=== PATIENT | male | born 1985 | race Two or more races ===

== ENCOUNTER 2025-02-17 06:15 | Day surgery (SDC) | payer MEDICAID, SELFPAY ==
[2025-02-16 08:50] VITALS: BMI 37.3
[2025-02-16 10:32] LABS: Basophils # (Auto) 0.0 Thou/mm3 (0.0-0.2); Basophils % (Auto) 1 % (0-2.5); Eosinophils # (Auto) 0.1 Thou/mm3 (0.0-0.5); Eosinophils % (Auto) 1 % (0-10); Hematocrit 46.5 % (41.0-53.0); Hemoglobin 16.0 g/dL (13.5-16.0); Immature Granulocytes Auto 0.01 Thou/mm3 (0.00-0.00); Lymphocytes # (Auto) 1.5 Thou/mm3 (1.0-4.8); Lymphocytes % (Auto) 30 % (10-50); Mean Corpuscular HGB Conc 34.4 g/dl (31.0-37.0); Mean Corpuscular Hemoglobin 32.1 pg (25.0-35.0); Mean Corpuscular Volume 93 fL (80-100); Monocytes # (Auto) 0.6 Thou/mm3 (0.0-0.8); Monocytes % (Auto) 12 % (0-12); Neutrophils # (Auto) 2.7 Thou/mm3 (1.8-7.7); Neutrophils % (Auto) 56 % (37-80); Nucleated Red Blood Cell # 0.00 Thou/mm3 (0.00-0.00); Nucleated Red Blood Cell % 0 /100 WBC (0); Platelet Count 202 Thou/mm3 (140-440); RDW Standard Deviation 42.5 fL (35.1-43.9); Red Blood Count 4.99 Miln/mm3 (4.50-5.90); White Blood Count 4.9 Thou/mm3 (3.8-10.6)
[2025-02-16 10:39] LABS: INR 1.0 (0.9-1.3); Partial Thromboplastin Time 27.1 Seconds (22.0-36.0); Prothrombin Time 11.2 Seconds (9.0-12.2)
[2025-02-16 10:44] LABS: Alanine Aminotransferase 70 U/L (10-49); Albumin, Serum 4.6 gm/dL (3.5-5.0); Albumin/Globulin Ratio 1.5 (1.2-2.2); Alkaline Phosphatase 53 U/L (46-116); Anion Gap 10 (7-16); Aspartate Amino Transferase 44 U/L (0-34); BUN/Creatinine Ratio 13 Ratio (12-20); Bilirubin,Total 0.7 mg/dL (0.3-1.2); Blood Urea Nitrogen 10 mg/dL (9-23); Calcium 9.8 mg/dL (8.3-10.6); Calcium (Corrected) 9.8 mg/dL (8.5-10.1); Carbon Dioxide 27.6 mMol/L (20.0-31.0); Chloride 103 mMol/L (98-107); Creatinine (Component) 0.8 mg/dL (0.6-1.3); Estimated Creatinine Clearance 170.6 mL/min (>60); Globulin 3.1 gm/dL (2.3-3.5); Glucose 97 mg/dL (74-106); Osmolality,Calculated 280 (275-295); Potassium 4.1 mMol/L (3.4-5.1); Sodium 141 mMol/L (136-145); Total Protein 7.7 gm/dL (5.7-8.2); eGFR > 60 See Note
--- NOTE | 2025-02-16 14:30 | SUR.PREOP ---
Pt notified to come in at 0630 tomorrow.
[2025-02-17 06:43] VITALS: BP 132/90; PULSE 63; RESP 13; TEMP 36.6; O2SAT 97; BMI 37.3
[2025-02-17] MEDS: RINGERS LACTATED 1000 ML 1,000 ML 20 ML IV (06:56)
--- NOTE | 2025-02-17 07:35 | CHAP ---
Visited with patient and prayed with the patient before the procedure.
[2025-02-17 09:47] VITALS: BP 108/57; PULSE 67; RESP 18; TEMP 36.2; O2SAT 98
--- NOTE | 2025-02-17 09:47 | SUR.PHASEI ---
pt received from OR in recovery bay 7. pt asleep but responds to voice, breathing unlabored on nc 4l. v/s stable. pt dressing to abd cdi. report received from Dr. Welch and Mouna DAVIS.
[2025-02-17 09:55] VITALS: BP 102/57; PULSE 61; RESP 16; TEMP 36.2; O2SAT 97
[2025-02-17 10:00] VITALS: BP 102/62; PULSE 62; RESP 17; TEMP 36.2; O2SAT 98
--- NOTE | 2025-02-17 10:04 | SUR.PHASEI ---
pt able to tolerate oral fluids without difficulty swallowing or nausea/vomiting.
[2025-02-17 10:05] VITALS: BP 105/55; PULSE 64; RESP 16; TEMP 36.2; O2SAT 96
--- NOTE | 2025-02-17 10:08 | ESOP_ITS ---
Date of Procedure 02/17/25 Pre Op Diagnosis Symptomatic umbilical hernia Post Op Diagnosis Same Procedure Repair of the symptomatic umbilical hernia with 1.[address] mesh Findings Patient was found to have a defect which easily admitted my index finger measuring at least about 2 to 2.5 cm in diameter. Therefore a mesh was used. Procedure Description After the patient was brought to the operating room endotracheal anesthesia was given. The abdomen was washed with ChloraPrep solution and draped in a sterile manner. Then I made a curved incision below the umbilicus after injecting half percent Marcaine. And the umbilical skin was dissected away from the sac which was defined. I used Kim retractors to dissect around the sac which was opened and was found to contain omentum. The sac was excised all the way down to the fascia by clamping it with Lizzie clamp and suture ligating with 2-0 chromic sutures. After I defined the fascial edges all around I decided to use a mesh and I chose a 1.[address] mesh. This was placed underneath the abdominal wall and I used a 2-0 Prolene to attach the Marlex straps to the edges. Then I placed 1 stitch in between the Marlex straps to hold the mesh close to the anterior wall. Then the back of the umbilical skin was attached to the fascia with 2-0 Prolene. Then used the subcutaneous tissue with three 3-0 chromic to obliterate the space. Skin was closed with 4-0 Monocryl after injecting local anesthesia. The dressing was applied with Adaptic and 4 x 4 gau ze and patient tolerated procedure well and left operating room in stable condition. Anesthesia GETA Implants 1.[address] mesh Pathology / specimen None Estimated Blood Loss 30 Surgeon Mayela Solano MD Surgical Staff Operation Date: 02/17/25 08:30 Case Staff Anesthesiologist: Curtis Welch
[2025-02-17 10:20] VITALS: BP 109/56; PULSE 61; RESP 16; TEMP 36.2; O2SAT 95
--- NOTE | 2025-02-17 10:38 | SUR.PHASEII ---
pt awake and alert, breathing unlabored on room air. v/s stable. pt dressing to abd cdi. pt able to ambulate to wheelchair with steady gait. d/c instructions given with Alma in room, all questions answered. pt d/c via wheelchair with all belongings.
== END 2025-02-17 10:38 | disposition home or self-care (01) ==
PROVIDERS: PCP Physician Assistant Medical; Referring Provider Surgery; Visit Provider Surgery
PROC: (CPT 49591; principal; 2025-02-17 08:30)
DX: K42.9 Umbilical hernia without obstruction or gangrene (principal)
CPT/HCPCS: 49591; 36415; 80053; 85025; 85610; 85730; A4217; A4649; C1781; J0131; J1100; J1885; J2250; J2405; J2704; J3010; J3490; J7120; A9270